=== PATIENT | male | born 1935 | race Caucasian/White ===

== ENCOUNTER → 2017-06-04 | Day surgery (SDC) | payer MEDICARE, OTHER ==
[2017-06-03 12:12] LABS: BASOPHILS % 0.4 % (0.0-1.0); EOSINOPHILS # (AUTO) 0.2 (0.0-0.4); EOSINOPHILS % 2.2 % (0.0-6.0); HEMATOCRIT 36.5 % (38.2-49.6); HEMOGLOBIN 12.7 g/dL (14.0-18.0); LYMPHOCYTES % 14.6 % (18.0-39.1); MEAN CORPUSCULAR HEMOGLOBIN 31.8 pg (28-32); MEAN CORPUSCULAR HGB CONC 34.8 g/dL (31-35); MEAN CORPUSCULAR VOLUME 91.5 fL (81-99); MONOCYTES # (AUTO) 0.7 (0.2-0.8); MONOCYTES % 10.7 % (4.4-11.3); NEUTROPHILS # (AUTO) 4.8 (2.1-6.9); NEUTROPHILS % 71.8 % (38.7-80.0); PLATELET COUNT 287 x10e3/uL (140-360); RED BLOOD COUNT 3.99 x10e6/uL (4.3-5.7); RED CELL DISTRIBUTION WIDTH 13.2 % (11.7-14.4)
--- NOTE | 2017-06-03 12:32 | Diagnostic Imaging Report ---
PROCEDURE:CHEST 2 VIEWS TECHNIQUE:PA lateral chest INDICATION:Preoperative evaluation for prostate surgery. COMPARISON:None. FINDINGS: The lungs are clear and symmetrically inflated. No pleural effusions. Postoperative sequela of CABG, with intact midline wires. Intact skeleton. CONCLUSION: No acute abnormality. Dictated by: Sandeep Spain M.D. on 06/03/2017 at 12:32 Electronically approved by: Sandeep Spain M.D. on 06/03/2017 at 12:32
[~2017-06-04] MED LIST: AMLODIPINE BESY10 MG PO; ASPIRIN325 MG PO; BELLADONNA/OPIUM 60 MG SUPP PR ONE; CARVEDILOL12.5 MG PO; CEFTRIAXONE SOD 1 GM VIAL ONE; CLOPIDOGREL75 MG PO; CRESTOR10 MG; DEXAMETHASONE SOD PHOS INJ 4 MG/ML VIAL ONE; DORZOLAMIDE-TIM10 ML OP; FENTANYL CITRATE/PF 100MCG/2 ML INJ ONE; GENTAMICIN 80MG/NS 100 ML 200 ML IV ONE; IOPAMIDOL 610MG/1ML 300 MG/ML VIAL IV ONE; LIDOCAINE HCL 2% LOCAL INJ 5 ML SDV VIAL INJ ONE; LISINOPRIL10 MG PO; MYLANTA; ONDANSETRON HCL INJ 2 MG/ML VIAL ONE; PROPOFOL IV EMULSION 10 MG/ML 20 ML VIAL ONE; RANEXA500 MG PO; SEVOFLURANE INHAL SOLN 250 ML PEN BTL ONE; TAMSULOSIN HCL0.4 MG; [UNRECOGNIZED DRUG - REMARK]
--- OUTSIDE RECORDS SUMMARY | 2017-06-04 06:40 | XMS REPORT ---
Author Author [facility] Address Unknown Phone Unavailable Care Team Providers Care Whiskey Regauger Name Role Phone CITLALY HINKLE Unavailable Unavailable Problems This patient has no known problems. Allergies, Adverse Reactions, Alerts This patient has no known allergies or adverse reactions. Medications This patient has no known medications. Results Test Description Test Time Test Comments Text Results Atomic Results Result Comments CHEST 2 VIEWS [place] [address] Patient Name: YOLANDE ROBERTSON MR #: [id number] : 1935 Age/Sex: 82/M Req #: [id number] Adm Physician: Ordered by: LEOL MOBLEY MD Report #: [id number] Location: OR Room/Bed: Procedure: [id number] DX/CHEST 2 VIEWS Exam Date: 06/03/17 Exam Time: 1210 REPORT STATUS: Signed PROCEDURE: CHEST 2 VIEWS TECHNIQUE: PA lateral chest INDICATION: Preoperative evaluation for prostate surgery. COMPARISON: None. FINDINGS: The lungs are clear and symmetrically inflated. No pleural effusions. Postoperative sequela of CABG, with intact midline wires. Intact skeleton. CONCLUSION: No acute abnormality. Dictated by: Gery Spain M.D. on 06/03/2017 at 12:32 Electronically approved by: Grey Spain M.D. on 2017 at 12:32 Dictated By: GREY SPAIN MD 1232 Transcribed By: GEOFF on 1232 COPY TO: LELO MOBLEY III
--- NOTE | 2017-07-27 11:01 | Operative Report ---
DATE OF PROCEDURE: June 04, 2017 PREOPERATIVE DIAGNOSES 1. Obstructive BPH. 2. Incomplete bladder emptying. 3. History of urinary retention. POSTOPERATIVE DIAGNOSES 1. Obstructive BPH. 2. Incomplete bladder emptying. 3. History of urinary retention. 4. Urethral stricture disease. PROCEDURES PERFORMED 1. Cystourethroscopy with calibration and dilation of distal urethral stricture (separate procedure performed for diagnosis of stricture). 2. Cystourethroscopy with bilateral ureteral catheterization and retrograde ureteropyelography (separate procedure performed to evaluate the upper tracts in light of the incomplete bladder emptying and history of urinary retention). 3. Interpretation of retrograde ureteropyelography. 4. Cystourethroscopy with implantation of 4 UroLift implants (separate procedure performed for the obstructive BPH). ANESTHESIA: General. COMPLICATIONS: None. CLINICAL SUMMARY: Fidel Galloway is an 82-year-old man who had urinary retention. He is brought to the operating room today for the above procedures. He is aware of the risks of bleeding, infection, injury to adjacent structures, need for additional procedures and elected to proceed. OPERATIVE PROCEDURE IN DETAIL: Informed consent was verified. Fidel Galloway was properly identified, taken to the operating room, and placed on the cystoscopy table in supine position. Anesthesia was uneventfully begun. The patient was carefully and gently repositioned in dorsal lithotomy position, with all pressure points well padded. His genitalia were prepared and draped in usual sterile fashion. A 22.5-Honduran cystoscope sheath with visual obturator in place could not be easily placed into the patient's urethra. We then calibrated the patient's fossa navicularis region to approximately 16 Honduran in size and dilated gently to 26 Honduran in size. This allowed us to easily place the cystoscope sheath into the patient's urethra. We guided it down the unremarkable distal urethra to the bulbar region where we encountered a normal sphincteric region. We entered, and the patient's prostate bed was significant for bilobar prostatic hypertrophy with visual obstruction. We entered the patient's bladder, which was significant for diffuse diverticula. No suspicious lesions were identified. There was some cloudiness consistent with yeast, and we will prescribe the patient Diflucan upon discharge. An 8-Honduran catheter was used cannulate each ureter, and retrograde ureteropyelograms were performed. Interpretation of retrograde ureteropyelography: Contrast was instilled in a retrograde fashion bilaterally. There were no tumors, no stones and no diverticula. Unobstructed drainage was observed bilaterally fluoroscopically. There was bilateral distal ureteral tortuosity, and J-hooking was present bilaterally. UroLift implants were then placed. A total of 4 implants were utilized. They were placed anterolaterally. Two were placed on each side 1.5 cm distal to the bladder neck, and 2 were placed on each side at the level of verumontanum. This resulted in a continuous open anterior channel. The patient's bladder was drained. Cystoscope was withdrawn. Digital rectal examination revealed a 30-g prostate, which was smooth and nonfluctuant without any nodules. A belladonna and opium suppository was left in place. Patient was then uneventfully reversed from anesthesia and taken to the recovery room in stable condition. No complications to the procedure. He tolerated the procedure well. Explicit postoperative instructions were given. We will follow the patient up in the office at which point we will plan on following the patient up with uroflowmetry and bladder ultrasonography. Job#: [id number] cc:JANELLE ALBRECHT MD
== END | disposition home or self-care (01) ==
LOC: OR 06:37
PROVIDERS: ATTEND Urology
DX: N40.1 Benign prostatic hyperplasia with lower urinary tract symptoms (principal); N13.8 Other obstructive and reflux uropathy; R33.9 Retention of urine, unspecified; R35.1 Nocturia; R39.14 Feeling of incomplete bladder emptying; N35.9 Urethral stricture, unspecified; I10 Essential (primary) hypertension; I25.810 Atherosclerosis of coronary artery bypass graft(s) without angina pectoris; I25.2 Old myocardial infarction; R60.0 Localized edema; K25.9 Gastric ulcer, unspecified as acute or chronic, without hemorrhage or perforation; R06.09 Other forms of dyspnea; K21.9 Gastro-esophageal reflux disease without esophagitis; Z01.810 Encounter for preprocedural cardiovascular examination; Z01.812 Encounter for preprocedural laboratory examination; Z01.818 Encounter for other preprocedural examination; Z79.82 Long term (current) use of aspirin; Z95.5 Presence of coronary angioplasty implant and graft; Z95.1 Presence of aortocoronary bypass graft
CPT/HCPCS: 52005; C9740; 36415; 71046; 74420; 85025; 87086; 93005; J0696; J1100; J1580; J2001; J2405

== ENCOUNTER 2021-04-23 08:30 | Inpatient (IN) | payer MEDICARE, OTHER ==
[2021-04-21 09:29] LABS: BASOPHILS % 0.5 % (0.0-1.0); EOSINOPHILS # (AUTO) 0.2 (0.0-0.4); EOSINOPHILS % 3.5 % (0.0-6.0); HEMATOCRIT 32.4 % (38.2-49.6); HEMOGLOBIN 10.7 g/dL (14.0-18.0); LYMPHOCYTES % 17.3 % (18.0-39.1); MEAN CORPUSCULAR HEMOGLOBIN 32.1 pg (28-32); MEAN CORPUSCULAR VOLUME 97.3 fL (81-99); MONOCYTES # (AUTO) 0.6 (0.2-0.8); MONOCYTES % 9.9 % (4.4-11.3); NEUTROPHILS # (AUTO) 4.1 (2.1-6.9); NEUTROPHILS % 68.5 % (38.7-80.0); PLATELET COUNT 234 x10e3/uL (140-360); RED BLOOD COUNT 3.33 x10e6/uL (4.3-5.7); RED CELL DISTRIBUTION WIDTH 13.6 % (11.7-14.4)
[2021-04-21 10:05] LABS: ANION GAP 11.1 mmol/L (8-16); CALCIUM 9.1 mg/dL (8.4-10.2); CREATININE, SERUM 0.82 mg/dL (0.72-1.25); POTASSIUM 4.1 mmol/L (3.5-5.1)
[~2021-04-23] VITALS: Ht 172.7 cm; Wt 75.3 kg
[~2021-04-23 08:30] MED LIST changes: -BELLADONNA/OPIUM 60 MG SUPP PR ONE; -CEFTRIAXONE SOD 1 GM VIAL ONE; -CRESTOR10 MG; +CRESTOR10 MG PO; -DEXAMETHASONE SOD PHOS INJ 4 MG/ML VIAL ONE; -FENTANYL CITRATE/PF 100MCG/2 ML INJ ONE; -GENTAMICIN 80MG/NS 100 ML 200 ML IV ONE; -IOPAMIDOL 610MG/1ML 300 MG/ML VIAL IV ONE; -LIDOCAINE HCL 2% LOCAL INJ 5 ML SDV VIAL INJ ONE; +LUMIGAN2.5 M1 OP; -ONDANSETRON HCL INJ 2 MG/ML VIAL ONE; -PROPOFOL IV EMULSION 10 MG/ML 20 ML VIAL ONE; -SEVOFLURANE INHAL SOLN 250 ML PEN BTL ONE; -TAMSULOSIN HCL0.4 MG; +TAMSULOSIN HCL0.4 MG PO
[2021-04-23] MEDS ORDERED: SODIUM CHLORIDE 0.9% 50ML 50 ML ONE (08:49)
[2021-04-23] MEDS ORDERED: CEFTRIAXONE 1 GM VIAL ONE (08:49)
[2021-04-23] MEDS ORDERED: GENTAMICIN 80MG/NS 100 ML 200 ML IV ONE (08:49)
[2021-04-23] MEDS ORDERED: SODIUM CHLORIDE 0.9% 1000ML 1,000 ML ONE (08:50)
[2021-04-23] MEDS ORDERED: B&O 60MG R/S 60 MG SUPP PR PRN (12:00)
[2021-04-23] MEDS ORDERED: ACETAMINOPHEN/CODEINE 300MG - 30MG TAB PO PRN (12:00)
[2021-04-23] MEDS ORDERED: PHENAZOPYRIDINE HCL 100 MG TAB PO PRN (12:00)
[2021-04-23] MEDS ORDERED: DIPHENHYDRAMINE HCL 25 MG CAP PO PRN (12:00)
[2021-04-23] MEDS ORDERED: ONDANSETRON HCL INJ 2MG/ML 2ML 2 MG/ML VIAL IV PRN (12:00)
[2021-04-23] MEDS ORDERED: IOPAMIDOL 300MG/ML 50ML INFUS..BTL IV ONE (12:19)
[2021-04-23] MEDS ORDERED: BELLADONNA/OPIUM 30 MG SUPP RC ONE (12:19)
[2021-04-23] MEDS ORDERED: EPHEDRINE SULFATE INJ 50 MG/ML VIAL ONE ×2 (13:42→19:13)
[2021-04-23 14:01] LABS: BASOPHILS % 0.5 % (0.0-1.0); EOSINOPHILS # (AUTO) 0.1 (0.0-0.4); EOSINOPHILS % 2.4 % (0.0-6.0); HEMATOCRIT 29.1 % (38.2-49.6); HEMOGLOBIN 9.7 g/dL (14.0-18.0); LYMPHOCYTES # (AUTO) 0.7 (1.0-3.2); LYMPHOCYTES % 19.8 % (18.0-39.1); MEAN CORPUSCULAR HEMOGLOBIN 31.8 pg (28-32); MEAN CORPUSCULAR HGB CONC 33.3 g/dL (31-35); MEAN CORPUSCULAR VOLUME 95.4 fL (81-99); MONOCYTES # (AUTO) 0.2 (0.2-0.8); MONOCYTES % 5.9 % (4.4-11.3); NEUTROPHILS # (AUTO) 2.7 (2.1-6.9); NEUTROPHILS % 71.1 % (38.7-80.0); PLATELET COUNT 195 x10e3/uL (140-360); RED BLOOD COUNT 3.05 x10e6/uL (4.3-5.7); RED CELL DISTRIBUTION WIDTH 13.8 % (11.7-14.4)
[2021-04-23] MEDS ORDERED: CEPACOL SORE THROAT LOZENGES PO PRN (14:30)
[2021-04-23 14:31] LABS: CALCIUM 7.9 mg/dL (8.4-10.2); CREATININE, SERUM 0.74 mg/dL (0.72-1.25)
[2021-04-23 14:52] VITALS: BP 110/54
[2021-04-23 15:01] VITALS: BP 110/54
[2021-04-23] MEDS: SODIUM CHLORIDE 0.9% 1000ML 1,000 ML IV SCH (15:29)
[2021-04-23] MEDS ORDERED: FUROSEMIDE INJ 10 MG/ML 4 ML VIAL IV ONE (15:30)
[2021-04-23] MEDS: DORZOLAMIDE/TIMOLOL (OPTH SOL) 10 ML DRPETTE OP SCH (17:00)
[2021-04-23] MEDS: DOCUSATE SODIUM 100 MG CAP PO SCH (17:19)
[2021-04-23] MEDS: CARVEDILOL 12.5 MG TAB PO SCH (17:19)
[2021-04-23 17:33] VITALS: BP 119/53
[2021-04-23] MEDS ORDERED: LIDOCAINE HCL 2% LOCAL INJ 5 ML SDV VIAL INJ ONE (19:13)
[2021-04-23] MEDS ORDERED: ONDANSETRON HCL INJ 2MG/ML 2ML 2 MG/ML VIAL ONE (19:13)
[2021-04-23] MEDS ORDERED: DEXAMETHASONE SOD PHOS INJ 4 MG/ML SDV ONE (19:13)
[2021-04-23] MEDS ORDERED: GLYCOPYRROLATE INJ 0.2 MG/ML VIAL ONE (19:13)
[2021-04-23] MEDS ORDERED: PROPOFOL IV EMULSION 10 MG/ML 20 ML VIAL ONE (19:13)
[2021-04-23] MEDS ORDERED: SEVOFLURANE INHAL SOLN 250 ML PEN BTL ONE (19:13)
[2021-04-23] MEDS ORDERED: POVIDONE IODINE 0.05% 0.05 % ML PO ONE (19:13)
[2021-04-23 19:28] VITALS: BP 114/52
[2021-04-23] MEDS ORDERED: FENTANYL CITRATE/PF 100MCG/2 ML INJ ONE (19:32)
[2021-04-23 20:53] VITALS: BP 114/52
[2021-04-23] MEDS: TAMSULOSIN HCL 0.4 MG CAP PO SCH (20:53)
[2021-04-24] VITALS (8 sets, daily range): BP systolic 107–133; BP diastolic 42–56
[2021-04-24] MEDS: SODIUM CHLORIDE 0.9% 1000ML 1,000 ML IV SCH ×2 (04:03→15:00)
[2021-04-24 06:00] LABS: HEMATOCRIT 28.9 % (38.2-49.6); LYMPHOCYTES # (AUTO) 0.6 (1.0-3.2); LYMPHOCYTES % 11.8 % (18.0-39.1); MEAN CORPUSCULAR HEMOGLOBIN 32.6 pg (28-32); MEAN CORPUSCULAR HGB CONC 34.6 g/dL (31-35); MEAN CORPUSCULAR VOLUME 94.1 fL (81-99); MONOCYTES # (AUTO) 0.4 (0.2-0.8); MONOCYTES % 7.6 % (4.4-11.3); NEUTROPHILS # (AUTO) 3.9 (2.1-6.9); NEUTROPHILS % 80.2 % (38.7-80.0); PLATELET COUNT 227 x10e3/uL (140-360); RED BLOOD COUNT 3.07 x10e6/uL (4.3-5.7); RED CELL DISTRIBUTION WIDTH 13.5 % (11.7-14.4)
[2021-04-24 06:17] LABS: ANION GAP 11.1 mmol/L (8-16); CALCIUM 7.7 mg/dL (8.4-10.2); CREATININE, SERUM 0.85 mg/dL (0.72-1.25); POTASSIUM 4.1 mmol/L (3.5-5.1)
[2021-04-24] MEDS: RANOLAZINE 500 MG TABSR PO SCH (08:29)
[2021-04-24] MEDS: CEFTRIAXONE 1 GM in SODIUM CHLORIDE 0.9% 50ML 50 ML IV SCH (08:29)
[2021-04-24] MEDS: CARVEDILOL 12.5 MG TAB PO SCH ×2 (08:29→17:10)
[2021-04-24] MEDS: DOCUSATE SODIUM 100 MG CAP PO SCH ×2 (08:29→17:10)
[2021-04-24] MEDS: DORZOLAMIDE/TIMOLOL (OPTH SOL) 10 ML DRPETTE OP SCH ×2 (08:43→17:07)
[2021-04-24] MEDS ORDERED: CLOPIDOGREL BISULFATE 75 MG TAB PO SCH (09:00)
[2021-04-24] MEDS ORDERED: BIMATOPROST(OPTH) 2.5 ML BOTTLE OP SCH (09:00)
[2021-04-24] MEDS ORDERED: ASPIRIN 325 MG TAB PO SCH (09:00)
[2021-04-24] MEDS: AMLODIPINE BESYLATE 10 MG TAB PO SCH (09:00)
[2021-04-24] MEDS: LISINOPRIL 20 MG TAB PO SCH (09:00)
[2021-04-24] MEDS ORDERED: ONDANSETRON HCL 4 MG ORAL DISINTEGRATING TAB PO PRN (18:15)
[2021-04-24] MEDS: BIMATOPROST(OPTH) 2.5 ML BOTTLE OP SCH (21:00)
[2021-04-24] MEDS: TAMSULOSIN HCL 0.4 MG CAP PO SCH (21:18)
[2021-04-24] MEDS: SIMVASTATIN 20 MG TAB PO SCH (21:18)
[2021-04-25] VITALS (8 sets, daily range): BP systolic 123–146; BP diastolic 55–62
[2021-04-25] MEDS: SODIUM CHLORIDE 0.9% 1000ML 1,000 ML IV SCH ×2 (05:07→17:28)
[2021-04-25 06:25] LABS: BASOPHILS % 0.4 % (0.0-1.0); EOSINOPHILS # (AUTO) 0.1 (0.0-0.4); EOSINOPHILS % 2.3 % (0.0-6.0); HEMATOCRIT 28.4 % (38.2-49.6); HEMOGLOBIN 9.4 g/dL (14.0-18.0); LYMPHOCYTES # (AUTO) 1.4 (1.0-3.2); LYMPHOCYTES % 24.8 % (18.0-39.1); MEAN CORPUSCULAR HEMOGLOBIN 31.9 pg (28-32); MEAN CORPUSCULAR HGB CONC 33.1 g/dL (31-35); MEAN CORPUSCULAR VOLUME 96.3 fL (81-99); MONOCYTES # (AUTO) 0.7 (0.2-0.8); MONOCYTES % 12.7 % (4.4-11.3); NEUTROPHILS # (AUTO) 3.4 (2.1-6.9); NEUTROPHILS % 59.6 % (38.7-80.0); PLATELET COUNT 216 x10e3/uL (140-360); RED BLOOD COUNT 2.95 x10e6/uL (4.3-5.7); RED CELL DISTRIBUTION WIDTH 13.9 % (11.7-14.4)
[2021-04-25 07:02] LABS: ANION GAP 8.7 mmol/L (8-16); CALCIUM 7.8 mg/dL (8.4-10.2); CREATININE, SERUM 0.85 mg/dL (0.72-1.25); POTASSIUM 3.7 mmol/L (3.5-5.1)
[2021-04-25] MEDS: CEFTRIAXONE 1 GM in SODIUM CHLORIDE 0.9% 50ML 50 ML IV SCH (10:18)
[2021-04-25] MEDS: DORZOLAMIDE/TIMOLOL (OPTH SOL) 10 ML DRPETTE OP SCH ×2 (10:18→17:27)
[2021-04-25] MEDS: DOCUSATE SODIUM 100 MG CAP PO SCH ×2 (10:19→17:27)
[2021-04-25] MEDS: LISINOPRIL 20 MG TAB PO SCH (10:20)
[2021-04-25] MEDS: AMLODIPINE BESYLATE 10 MG TAB PO SCH (10:20)
[2021-04-25] MEDS: CARVEDILOL 12.5 MG TAB PO SCH ×2 (10:20→17:27)
[2021-04-25] MEDS: RANOLAZINE 500 MG TABSR PO SCH (10:21)
[2021-04-25] MEDS: TAMSULOSIN HCL 0.4 MG CAP PO SCH (21:27)
[2021-04-25] MEDS: SIMVASTATIN 20 MG TAB PO SCH (21:27)
[2021-04-25] MEDS: BIMATOPROST(OPTH) 2.5 ML BOTTLE OP SCH (21:27)
[2021-04-26] VITALS (8 sets, daily range): BP systolic 133–150; BP diastolic 52–63
[2021-04-26] MEDS: SODIUM CHLORIDE 0.9% 1000ML 1,000 ML IV SCH ×2 (05:57→20:00)
[2021-04-26 06:11] LABS: BASOPHILS % 0.1 % (0.0-1.0); EOSINOPHILS # (AUTO) 0.1 (0.0-0.4); EOSINOPHILS % 1.6 % (0.0-6.0); HEMATOCRIT 29.6 % (38.2-49.6); HEMOGLOBIN 10.1 g/dL (14.0-18.0); LYMPHOCYTES # (AUTO) 1.2 (1.0-3.2); LYMPHOCYTES % 15.4 % (18.0-39.1); MEAN CORPUSCULAR HEMOGLOBIN 32.9 pg (28-32); MEAN CORPUSCULAR HGB CONC 34.1 g/dL (31-35); MEAN CORPUSCULAR VOLUME 96.4 fL (81-99); MONOCYTES % 12.9 % (4.4-11.3); NEUTROPHILS # (AUTO) 5.3 (2.1-6.9); NEUTROPHILS % 69.7 % (38.7-80.0); PLATELET COUNT 214 x10e3/uL (140-360); RED BLOOD COUNT 3.07 x10e6/uL (4.3-5.7); RED CELL DISTRIBUTION WIDTH 13.8 % (11.7-14.4)
[2021-04-26 06:38] LABS: CALCIUM 8.1 mg/dL (8.4-10.2); CREATININE, SERUM 0.74 mg/dL (0.72-1.25)
[2021-04-26] MEDS: DORZOLAMIDE/TIMOLOL (OPTH SOL) 10 ML DRPETTE OP SCH ×2 (09:32→17:49)
[2021-04-26] MEDS: CEFTRIAXONE 1 GM in SODIUM CHLORIDE 0.9% 50ML 50 ML IV SCH (09:32)
[2021-04-26] MEDS: DOCUSATE SODIUM 100 MG CAP PO SCH ×2 (09:33→17:49)
[2021-04-26] MEDS: CARVEDILOL 12.5 MG TAB PO SCH ×2 (09:33→17:49)
[2021-04-26] MEDS: LISINOPRIL 20 MG TAB PO SCH (09:34)
[2021-04-26] MEDS: AMLODIPINE BESYLATE 10 MG TAB PO SCH (09:34)
[2021-04-26] MEDS: RANOLAZINE 500 MG TABSR PO SCH (09:35)
[2021-04-26] MEDS: TAMSULOSIN HCL 0.4 MG CAP PO SCH (20:00)
[2021-04-26] MEDS: SIMVASTATIN 20 MG TAB PO SCH (20:00)
[2021-04-26] MEDS: BIMATOPROST(OPTH) 2.5 ML BOTTLE OP SCH (20:00)
[2021-04-27 00:05] VITALS: BP 130/58
[2021-04-27 04:00] VITALS: BP 136/60
[2021-04-27 06:25] LABS: BASOPHILS % 0.2 % (0.0-1.0); EOSINOPHILS # (AUTO) 0.1 (0.0-0.4); EOSINOPHILS % 1.7 % (0.0-6.0); HEMATOCRIT 29.4 % (38.2-49.6); HEMOGLOBIN 9.9 g/dL (14.0-18.0); LYMPHOCYTES # (AUTO) 0.9 (1.0-3.2); LYMPHOCYTES % 13.8 % (18.0-39.1); MEAN CORPUSCULAR HEMOGLOBIN 32.7 pg (28-32); MEAN CORPUSCULAR HGB CONC 33.7 g/dL (31-35); MONOCYTES # (AUTO) 0.8 (0.2-0.8); MONOCYTES % 12.4 % (4.4-11.3); NEUTROPHILS # (AUTO) 4.7 (2.1-6.9); NEUTROPHILS % 71.6 % (38.7-80.0); PLATELET COUNT 210 x10e3/uL (140-360); RED BLOOD COUNT 3.03 x10e6/uL (4.3-5.7); RED CELL DISTRIBUTION WIDTH 14.1 % (11.7-14.4)
[2021-04-27 06:45] LABS: ANION GAP 10.6 mmol/L (8-16); CALCIUM 7.9 mg/dL (8.4-10.2); CREATININE, SERUM 0.77 mg/dL (0.72-1.25); POTASSIUM 3.6 mmol/L (3.5-5.1)
[2021-04-27 08:02] VITALS: BP 139/55
[2021-04-27 08:17] VITALS: BP 139/55
[2021-04-27] MEDS: CARVEDILOL 12.5 MG TAB PO SCH (09:03)
[2021-04-27] MEDS: CEFTRIAXONE 1 GM in SODIUM CHLORIDE 0.9% 50ML 50 ML IV SCH (09:03)
[2021-04-27] MEDS: DORZOLAMIDE/TIMOLOL (OPTH SOL) 10 ML DRPETTE OP SCH (09:03)
[2021-04-27] MEDS: AMLODIPINE BESYLATE 10 MG TAB PO SCH (09:04)
[2021-04-27] MEDS: LISINOPRIL 20 MG TAB PO SCH (09:04)
[2021-04-27] MEDS: RANOLAZINE 500 MG TABSR PO SCH (09:04)
[2021-04-27] MEDS: DOCUSATE SODIUM 100 MG CAP PO SCH (09:07)
[2021-04-27] MEDS ORDERED: LEVOFLOXACIN250 MG PO (10:29)
[2021-04-27 11:49] VITALS: BP 119/53
== END 2021-04-27 14:05 | disposition home or self-care (01) | DRG 713 ==
LOC: OR 08:30 → PACU V 11:58 → MED/SURG 14:35
PROC: 0V508ZZ Destruction of Prostate, Via Natural or Artificial Opening Endoscopic (ICD-10-PCS; principal; 2021-04-23 11:00)
DX: N40.1 Benign prostatic hyperplasia with lower urinary tract symptoms (principal); E87.1 Hypo-osmolality and hyponatremia; R33.8 Other retention of urine; R39.14 Feeling of incomplete bladder emptying; R35.1 Nocturia; I10 Essential (primary) hypertension; E78.00 Pure hypercholesterolemia, unspecified; I25.10 Atherosclerotic heart disease of native coronary artery without angina pectoris; D64.9 Anemia, unspecified; J44.9 Chronic obstructive pulmonary disease, unspecified; Z20.822 Contact with and (suspected) exposure to COVID-19
CPT/HCPCS: 36415; 71046; 74420; 80048; 83735; 85025; 93005; 94799; 96361; C1758; J0696; J1100; J1580; J1940; J2001; J2405; J3010; J7030; U0002